=== PATIENT | male | born 1940 ===

== ENCOUNTER → 2018-06-10 13:07 | Outpatient (REF) | payer MEDICARE, SELFPAY ==
[2018-06-10 13:30] LABS: INR 5.5 (0.9-1.3)
== END ==
LOC: LAB 13:07
PROVIDERS: Visit Provider Specialist
DX: I21.9 Acute myocardial infarction, unspecified (principal)
CPT/HCPCS: 85610

== ENCOUNTER → 2018-06-17 13:09 | Outpatient (REF) | payer MEDICARE, SELFPAY ==
[2018-06-17 13:41] LABS: INR 2.1 (0.9-1.3); Prothrombin Time 22.5 SECONDS (10.1-12.7)
== END ==
LOC: LAB 13:09
PROVIDERS: Visit Provider Specialist
DX: G45.9 Transient cerebral ischemic attack, unspecified (principal)
CPT/HCPCS: 85610

== ENCOUNTER → 2018-06-24 14:25 | Outpatient (REF) | payer MEDICARE, SELFPAY ==
[2018-06-24 14:59] LABS: INR 1.9 (0.9-1.3); Prothrombin Time 20.5 SECONDS (10.1-12.7)
== END ==
LOC: LAB 14:25
PROVIDERS: Visit Provider Specialist
DX: Z51.81 Encounter for therapeutic drug level monitoring (principal)
CPT/HCPCS: 85610

== ENCOUNTER → 2018-07-01 15:35 | Outpatient (REF) | payer MEDICARE, SELFPAY | LOC: LAB 15:35 | PROVIDERS: Visit Provider Specialist | DX: Z51.81 Encounter for therapeutic drug level monitoring (principal) ==

== ENCOUNTER → 2018-07-02 18:34 | Outpatient (REF) | payer MEDICARE, SELFPAY ==
[2018-07-02 18:46] LABS: INR 2.5 (0.9-1.3); Prothrombin Time 27.2 SECONDS (10.1-12.7)
== END ==
LOC: LAB 18:34
PROVIDERS: Visit Provider Specialist
DX: Z51.81 Encounter for therapeutic drug level monitoring (principal)
CPT/HCPCS: 36415; 85610

== ENCOUNTER → 2018-07-15 13:51 | Outpatient (REF) | payer MEDICARE, SELFPAY ==
[2018-07-15 14:05] LABS: INR 2.8 (0.9-1.3); Prothrombin Time 31.3 SECONDS (10.1-12.7)
== END ==
LOC: LAB 13:51
PROVIDERS: Visit Provider Specialist
DX: Z51.81 Encounter for therapeutic drug level monitoring (principal)
CPT/HCPCS: 85610

== ENCOUNTER → 2018-07-31 14:21 | Outpatient (REF) | payer MEDICARE, SELFPAY | LOC: LAB 14:21 | PROVIDERS: Visit Provider Nurse Practitioner | DX: Z51.81 Encounter for therapeutic drug level monitoring (principal) ==

== ENCOUNTER → 2018-08-04 13:33 | Outpatient (REF) | payer MEDICARE, SELFPAY ==
[2018-08-04 15:37] LABS: INR 2.7 (0.9-1.3); Prothrombin Time 29.6 SECONDS (10.1-12.7)
== END ==
LOC: LAB 13:33
PROVIDERS: Visit Provider Specialist
DX: I48.91 Unspecified atrial fibrillation (principal)
CPT/HCPCS: 85610

== ENCOUNTER → 2018-08-19 13:25 | Outpatient (REF) | payer MEDICARE, SELFPAY ==
[2018-08-19 13:44] LABS: INR 1.8 (0.9-1.3); Prothrombin Time 20.7 SECONDS (10.1-12.7)
== END ==
LOC: LAB 13:25
PROVIDERS: Visit Provider Nurse Practitioner
DX: Z51.81 Encounter for therapeutic drug level monitoring (principal)
CPT/HCPCS: 85610

== ENCOUNTER → 2018-09-18 14:16 | Outpatient (REF) | payer MEDICARE, SELFPAY ==
[2018-09-18 14:58] LABS: Prothrombin Time 23.1 SECONDS (10.1-12.7)
== END ==
LOC: LAB 14:16
PROVIDERS: Visit Provider Nurse Practitioner
DX: Z51.81 Encounter for therapeutic drug level monitoring (principal)
CPT/HCPCS: 36415; 85610

== ENCOUNTER → 2018-09-30 13:50 | Outpatient (REF) | payer MEDICARE, SELFPAY ==
[2018-09-30 14:29] LABS: INR 1.5 (0.9-1.3); Prothrombin Time 17.4 SECONDS (10.1-12.7)
== END ==
LOC: LAB 13:50
PROVIDERS: Visit Provider Nurse Practitioner
DX: Z51.81 Encounter for therapeutic drug level monitoring (principal)
CPT/HCPCS: 36415; 85610